=== PATIENT | female | born 1960 | race Caucasian/White ===

== ENCOUNTER 2016-09-19 00:13 | Inpatient (IN) | payer BC ==
[~2016-09-19] VITALS: Ht 170.2 cm; Wt 85.3 kg
[2016-09-19 02:36] LABS: BASOPHIL % 1.2 % (0-2); PLATELET COUNT 213 x10^3mcL (130-400); RED CELL DISTRIBUTION WIDTH 12.7 % (11.5-14.5)
[2016-09-19] MEDS ORDERED: FELODIPINE5 M1 (02:50)
[2016-09-19] MEDS ORDERED: FLUOXETINE HYDR20 M2 (02:50)
[2016-09-19 02:59] LABS: CALCIUM 8.9 mg/dL (8.5-10.1); CARBON DIOXIDE 25.2 mmol/L (21-32); CHLORIDE SERUM 103 mmol/L (98-107); CREATININE SERUM 0.8 mg/dL (0.6-1.0); GFR1 > 60 mL/min; GLUCOSE SERUM 118 mg/dL (74-106); POTASSIUM SERUM 3.6 mmol/L (3.5-5.1); SODIUM SERUM 138 mmol/L (136-145)
[2016-09-19 03:04] LABS: ALBUMIN 3.7 g/dL (3.4-5.0); ALKALINE PHOSPHATASE 84 U/L (46-116); ALT/SGPT 28 U/L (14-59); AST/SGOT 9 U/L (15-37); BILIRUBIN TOTAL 0.3 mg/dL (0.20-1.00); TOTAL PROTEIN, SERUM 6.8 g/dL (6.4-8.2)
[2016-09-19] MEDS ORDERED: PROGESTERONE WE1 PO3 (03:16)
[2016-09-19 04:09] VITALS: BP 146/85
[2016-09-19 04:13] LABS: AMYLASE 49 U/L (25-115); LIPASE 206 IU/L (73-393)
[2016-09-19 04:14] LABS: CHOLESTEROL 220 mg/dL (<200); CHOLESTEROL/HDL RATIO 6.5; HDL CHOLESTEROL 34 mg/dL (40-60); TRIGLYCERIDES 639 mg/dL (<150)
[2016-09-19 04:19] LABS: FREE T4 0.73 ng/dL (0.76-1.46); FREE THYROXINE INDEX 2.2 ug/dL (1.4-4.5); T4(THYROXINE) 6.6 ug/dL (4.7-13.3)
[2016-09-19 04:37] LABS: T3 TOTAL 1.18 ng/mL
[2016-09-19 09:17] VITALS: BP 111/75
[2016-09-19 12:30] VITALS: BP 105/66
[2016-09-19 16:47] VITALS: BP 116/63
[2016-09-19 21:30] VITALS: BP 122/75
[2016-09-20 05:54] VITALS: BP 112/72
[2016-09-20 06:24] LABS: BASOPHIL % 0.4 % (0-2); PLATELET COUNT 173 x10^3mcL (130-400); RED CELL DISTRIBUTION WIDTH 13.3 % (11.5-14.5)
[2016-09-20 06:36] LABS: CALCIUM 8.1 mg/dL (8.5-10.1); CARBON DIOXIDE 26.2 mmol/L (21-32); CHLORIDE SERUM 106 mmol/L (98-107); CREATININE SERUM 0.7 mg/dL (0.6-1.0); GFR1 > 60 mL/min; GLUCOSE SERUM 116 mg/dL (74-106); MAGNESIUM 2.2 mg/dL (1.8-2.4); POTASSIUM SERUM 3.9 mmol/L (3.5-5.1); SODIUM SERUM 142 mmol/L (136-145)
[2016-09-20 09:41] VITALS: BP 136/77
[2016-09-20 09:48] VITALS: BP 136/77
[2016-09-20 12:17] VITALS: BP 111/70
[2016-09-20 14:00] VITALS: BP 128/78
[2016-09-20 17:56] LABS: UA SPECIFIC GRAVITY <=1.005 (1.005-1.035); microscopic required? YES; urine erythrocyte TRACE (NEGATIVE)
[2016-09-20 18:05] LABS: AMPHETAMINE QUAL UR NONE DETECTED (NEG <=1000)
[2016-09-20 21:39] VITALS: BP 131/70
[2016-09-21 05:56] VITALS: BP 124/69
[2016-09-21 06:57] LABS: CALCIUM 8.3 mg/dL (8.5-10.1); CARBON DIOXIDE 30.3 mmol/L (21-32); CHLORIDE SERUM 106 mmol/L (98-107); CREATININE SERUM 0.6 mg/dL (0.6-1.0); GFR1 > 60 mL/min; GLUCOSE SERUM 107 mg/dL (74-106); MAGNESIUM 2.1 mg/dL (1.8-2.4); PHOSPHOROUS 3.2 mg/dL (2.5-4.9); POTASSIUM SERUM 3.6 mmol/L (3.5-5.1); SODIUM SERUM 142 mmol/L (136-145)
[2016-09-21 07:06] LABS: BASOPHIL % 0.4 % (0-2); PLATELET COUNT 184 x10^3mcL (130-400); RED CELL DISTRIBUTION WIDTH 13.4 % (11.5-14.5)
[2016-09-21 10:00] VITALS: BP 141/66
[2016-09-21 10:37] VITALS: BP 115/69
[2016-09-21 14:57] VITALS: BP 115/69
== END 2016-09-21 15:42 | disposition home or self-care (01) | DRG 920 ==
LOC: ED 00:13 → DU 02:39 → MU 09-20 17:23
PROVIDERS: Emergency Medicine; Internal Medicine Gastroenterology; ADMIT Family Medicine
PROC: 0W3P8ZZ Control Bleeding in Gastrointestinal Tract, Via Natural or Artificial Opening Endoscopic (ICD-10-PCS; principal; 2016-09-20 08:00)
PROC: 0DBL8ZZ Excision of Transverse Colon, Via Natural or Artificial Opening Endoscopic (ICD-10-PCS; 2016-09-20 08:00)
PROC: 0DBN8ZZ Excision of Sigmoid Colon, Via Natural or Artificial Opening Endoscopic (ICD-10-PCS; 2016-09-20 08:00)
PROC: 0DBK8ZZ Excision of Ascending Colon, Via Natural or Artificial Opening Endoscopic (ICD-10-PCS; 2016-09-20 08:00)
DX: K91.840 Postprocedural hemorrhage of a digestive system organ or structure following a digestive system procedure (principal); D62 Acute posthemorrhagic anemia; I42.9 Cardiomyopathy, unspecified; I10 Essential (primary) hypertension; D12.2 Benign neoplasm of ascending colon; D12.5 Benign neoplasm of sigmoid colon; D12.3 Benign neoplasm of transverse colon; K64.8 Other hemorrhoids; E78.5 Hyperlipidemia, unspecified; F32.9 Major depressive disorder, single episode, unspecified; F41.8 Other specified anxiety disorders; Y84.8 Other medical procedures as the cause of abnormal reaction of the patient, or of later complication, without mention of misadventure at the time of the procedure; Y92.009 Unspecified place in unspecified non-institutional (private) residence as the place of occurrence of the external cause
CPT/HCPCS: 45378; 80307; 83880; 84439; G0480; J1200; J1610; J2250; J2310; J2405; J3010; J3490; J7030; Q0092; Q0177

== ENCOUNTER 2018-07-15 10:40 | Emergency (ER) | payer BC ==
[~2018-07-15] VITALS: Ht 170.2 cm; Wt 82.2 kg
[~2018-07-15 10:40] MED LIST: FELODIPINE5 M1; FLUOXETINE HYDR20 M2; PROGESTERONE WE1 PO3
[2018-07-15 11:25] VITALS: Ht 170.2 cm; Wt 82.2 kg
[2018-07-15 13:16] VITALS: BP 163/98
== END 2018-07-15 13:16 | disposition home or self-care (01) ==
LOC: ED 10:40
DX: M25.511 Pain in right shoulder (principal); I10 Essential (primary) hypertension